=== PATIENT | female | born 1980 | race Caucasian/White ===

== ENCOUNTER 2023-01-05 09:07 | Outpatient (REF) | payer OTHER, SELFPAY ==
--- NOTE | ~2023-01-05 | MM_ITS ---
EXAMINATION: MM SCREENING DIGITAL BREAST TOMOSYNTHESIS, BILATERAL CLINICAL INFORMATION: Screening. Asymptomatic. No family history of breast CA. COMPARISON: Mammography: 06/04/2018, baseline exam. TECHNIQUE: Digital breast tomosynthesis is performed in both the craniocaudal and mediolateral oblique views along with computer-aided detection (CAD). Synthesized 2D images are generated from the tomosynthesis. In addition, bilateral full-field X CCL 3-D images were obtained as well as full-field 3-D bilateral nipple in profile and MLO views. FINDINGS: There are scattered areas of fibroglandular density (ACR BI-RADS breast composition Category b). There are bilateral nipple rings in place (barbells). There are dystrophic appearing calcifications with oil cysts in both breasts, scattered and benign. There are no skin changes. Prominent veins are again noted in both breasts, nonspecific. There are no axillary abnormalities. There are no suspicious abnormalities in the left breast. In the posterior slightly inferior and medial right breast, there is a focal asymmetry which is partially circumscribed, isodense, most likely represents cyst development although this is indeterminate. Recommend spot compression views in the CC and MLO projections, full field 90 degree 3-D projection right breast, and ultrasound to follow if warranted. MM/MM tomosynthesis screening BI IMPRESSION: New focal asymmetric density in the right breast posterior one third, lower slightly inner quadrant, for which diagnostic views are recommended as above. No suspicious findings in the left breast. Stable benign calcifications. ASSESSMENT: BI-RADS BI-RADS 0 - Incomplete: Needs additional Imaging. RECOMMENDATION: 1. Additional views of the right breast. 2. Targeted ultrasound if warranted after review of the additional views. 3. Radiology department staff will contact the patient for additional imaging. Additional Imaging required This examination should not preclude the clinical evaluation of a suspicious palpable abnormality. This patient's information was entered into a reminder system with a target due date for their next mammogram.
== END 2023-01-05 09:08 | disposition home or self-care (01) ==
LOC: HO.MAMMO 09:07
PROVIDERS: PCP Nurse Practitioner Family; Visit Provider Nurse Practitioner Family
DX: Z12.31 Encounter for screening mammogram for malignant neoplasm of breast (principal)
CPT/HCPCS: 77063; 77067

== ENCOUNTER → 2023-01-05 09:15 | Outpatient (BNV) | payer OTHER, SELFPAY | PROVIDERS: PCP Nurse Practitioner Family; Visit Provider Radiology Diagnostic Radiology | DX: Z12.31 Encounter for screening mammogram for malignant neoplasm of breast (principal) | CPT/HCPCS: 77063; 77067 ==

== ENCOUNTER 2023-02-13 12:53 | Outpatient (REF) | payer OTHER, SELFPAY ==
--- NOTE | ~2023-02-13 | US_ITS ---
EXAMINATION: MM DIAGNOSTIC DIGITAL BREAST TOMOSYNTHESIS, RIGHT US BREAST LIMITED, RIGHT MAMMOGRAPHY: CLINICAL INFORMATION: The patient presents for further evaluation of a focal asymmetry of the lower inner quadrant of the right breast As noted on screening mammography from 01/05/2023. COMPARISON: Mammography: This study is compared with prior imaging dating back to 2019. TECHNIQUE: Digital breast tomosynthesis is performed in both the craniocaudal and mediolateral oblique views along with computer-aided detection (CAD). Synthesized 2D images are generated from the tomosynthesis. CC and MLO spot compression of the right breast and full lateral view of the right breast. FINDINGS: There are scattered areas of fibroglandular density (ACR BI-RADS breast composition Category b). Additional mammographic imaging of the focal asymmetry of the lower inner quadrant of the right breast reveals the finding to be pliable, have areas of central lucency and lack suspicious mammographic features. The finding has the appearance of normal lymphoid tissue. ULTRASOUND: CLINICAL INFORMATION: No mammographic asymmetry lower inner quadrant right breast. TECHNIQUE: Targeted sonographic evaluation was performed using a high frequency linear transducer. Selected archived documentation. FINDINGS: RIGHT BREAST: Targeted sonography of the lower inner quadrant of the right breast and aspect of the right breast reveals no discrete abnormality. US/US breast RT limited mamm only IMPRESSION: Focal asymmetry of the lower inner quadrant of the right breast likely represents lymphoid tissue however, there is no sonographic correlate. This is not unusual and predominantly fatty replaced normal lymphoid tissue. Nonetheless, short interval six-month follow-up mammography is advised to ensure lack of significant change. IMPRESSION: Short interval six-month follow-up mammography is recommended for probably benign focal asymmetry of the lower inner quadrant of the right breast. This finding likely represents normal lymphoid tissue however since there is no distinct sonographic correlate, a short interval follow-up is advised. OVERALL ASSESSMENT: Mammography: BI-RADS 3 - Probably benign finding(s) - 6 month follow-up suggested RECOMMENDATION: 6 month follow-up mammogram Results were provided to the patient at time of visit by the technologist. This patient's information was entered into a reminder system with a target due date for their next mammogram.
== END 2023-02-13 12:54 | disposition home or self-care (01) ==
LOC: HO.MAMMO 12:53
PROVIDERS: PCP Nurse Practitioner Family; Visit Provider Nurse Practitioner Family
DX: N64.89 Other specified disorders of breast (principal)
CPT/HCPCS: 76642; 77061; 77065

== ENCOUNTER → 2023-02-13 13:00 | Outpatient (BNV) | payer OTHER, SELFPAY | PROVIDERS: PCP Nurse Practitioner Family; Visit Provider Radiology Diagnostic Radiology | DX: N60.01 Solitary cyst of right breast (principal) | CPT/HCPCS: 76642; 77061; 77065 ==

== ENCOUNTER 2024-01-11 09:04 | Outpatient (REF) | payer MEDICAID, SELFPAY ==
--- NOTE | ~2024-01-11 | MM_ITS ---
EXAMINATION: MM SCREENING DIGITAL BREAST TOMOSYNTHESIS, BILATERAL CLINICAL INFORMATION: Screening. Asymptomatic. COMPARISON: Mammography: Comparison is made with available priors TECHNIQUE: Digital breast mammography with tomosynthesis is performed in both the craniocaudal and mediolateral oblique views along with computer-aided detection (CAD). FINDINGS: There are scattered areas of fibroglandular density (ACR BI-RADS breast composition Category b). Focal asymmetry lower inner right breast posterior depth stable from mammogram 2022 prior ultrasound was normal. This area was deemed to be probably benign December 2022 and 6 month follow-up was recommended however patient came back for normal screening exam. There are no significant other masses, abnormal calcifications, or other abnormalities. MM/MM tomosynthesis screening BI IMPRESSION: Focal asymmetry lower inner breast posterior depth not significantly changed from prior mammograms dating back for 1 year. Recommend one-year follow-up diagnostic mammogram to demonstrate 2 years of stability. ASSESSMENT: BI-RADS BI-RADS 3 - Probably benign finding(s) - 12 month follow-up suggested RECOMMENDATION: Recommend diagnostic mammogram in one year to demonstrate 2 years of stability when the patient is due for bilateral mammography. 12 month diagnostic follow up This examination should not preclude the clinical evaluation of a suspicious palpable abnormality. This patient's information was entered into a reminder system with a target due date for their next mammogram. Electronically signed by: Abena Mendoza DO 01/23/2024 07:10 PM EDT
== END 2024-01-11 09:05 | disposition home or self-care (01) ==
LOC: HO.MAMMO 09:04
PROVIDERS: PCP Family Medicine; Visit Provider Family Medicine
DX: Z12.31 Encounter for screening mammogram for malignant neoplasm of breast (principal)
CPT/HCPCS: 77063; 77067

== ENCOUNTER → 2024-01-11 09:15 | Outpatient (BNV) | payer MEDICAID, SELFPAY | PROVIDERS: PCP Family Medicine; Visit Provider Internal Medicine | DX: Z12.31 Encounter for screening mammogram for malignant neoplasm of breast (principal) | CPT/HCPCS: 77063; 77067 ==

== ENCOUNTER 2025-01-16 09:18 | Outpatient (REF) | payer MEDICAID, SELFPAY ==
--- OUTSIDE RECORDS SUMMARY | 2023-11-16 05:20 | XMS_ITS ---
Author Organization [facility] Address [address] [place] [phone] Care Team Providers Care Livestock Farmers Name Role Phone Syed PATTON, Roger Primary Care Provider Derek Dexter [phone] REASON FOR VISIT Patient presents today for a COLON SCREENING, DIFFICULTY SWALLOWING Encounters Encounter Location Date Provider Diagnosis [facility] [address] [place] [phone] 11/16/2023 Derek Rodriguez Plan Of Treatment No Information Progress Notes * SILVERIO WAREDOB:1980 (44 yo F)Acc No.[id number]:11/16/2023 Progress Notes Patient: SILVERIO LEMA Provider: Mindy Rodriguez MD :1980 A ge:43 Y S ex:Female Date:11/16/2023 Address:[address] [place], [place] [id number] Pcp:Roger Lynch MD Subjective: * Chief Complaints: * 1 . Patient presents today for a COLON SCREENING, DIFFICULTY SWALLOWING. * Medical History: Objective: * Vitals: Assessment: Plan: * Treatment: * * The named appointment provid er may or may not be the originator of this progress note, and it is not deemed complete until electronically signed by the appointment provider. Sign off status: Pending * Provider: Mindy Rodriguez MD Date: 11/16/2023 Generated for Lawrence hernandez/Wilbur/Dougieitting on: 01/16/2025 10:18 AM EDT
--- OUTSIDE RECORDS SUMMARY | 2025-01-16 10:18 | XMS_ITS | Encounter Summary ---
Author Organization [facility] Address [address] [place] [phone] Phone Care Team Providers Care Sample Display Preparer Name Role Phone Hazel Rosenthal MD Primary Care Provider [phone] Reason for Visit * Reason Onset Date Comments Request For Order(s) 01/16/2025 Encounter Details Date Type Department Care Team (Late st Contact Info) Description 01/16/[address] [id number] Hazel Rosenthal MD [address] [facility], [address] [place] [address] [email or web address] Request For Order(s) Social History Tobacco Use Types Packs/Day Years Used Date Smoking Tobacco: Never Smokeless Tobacco: Never Alcohol Use Standard Drinks/Week Comments Not Currently 0 (1 standard drink = 0.6 oz pur e alcohol) Child or Family Care Answer Date Record ed Do you have problems with on e of the following making it difficult for you to work, study, or receive health care? No 06/16/2024 Education Answer Date Recorded Are you interested in help w ith more adult education (for example, completing high school, GED, job training, learning the [place] language, technical skills, or developing parenting skills)? No 06/16/2024 Are you concerned about learning? Not on file 06/16/2024 No 06/16/2024 Yes 06/16/2024 Food Answer Date Recorded Within the past 6 months we worried whether our food would run out before we got money to buy more. Never True 06/16/2024 Within the past 6 months the food we bought just didn't last and we didn't have enough money to get more. Never True Residential Stability Answer Date Recor ded What is your housing situation today? I have gil torres 06/16/2024 How many times have you move d in the past 12 months? Zero (I did not move) 06/16/2024 Paying for Meds Answer Date Recorded Do you have trouble paying for medicines? No 06/16/2024 Paying Utility Bills Answer Date Record ed Do you have trouble paying your heating or elect ricity bill? No 06/16/2024 Transportation Answer Date Recorded Has the lack of transportati on kept you from medical appointments or from getting medications? No 06/16/2024 Unemployment Answer Date Recorded Are you currently unemployed or working on a part-time or temporary basis, and looking for work? No 06/09/2023 Digital Access Answer Date Recorded No 06/16/2024 Yes 06/16/2024 Do you have reliable internet access at home? Ye s 06/16/2024 Do you have a device (e.g., phone, tablet, computer) with a working camera? Yes 06/16/2024 SNAP & WIC Answer Date Recorded Do you receive benefits from SNAP (the Supplemental Nutrition Assistance Program) or the Food Stamp Program? No 06/16/2024 SNAP is a free program that can help you and your family get access to healthy foods, nutrition classes, utility discounts, and more. Would you be interested in learning more? No 06/16/2024 Can we help you enroll in SNAP? Not on file 06/16/2024 Benefits received from WIC? Not on file 05/26 WIC is a free program, interested in learning mo re? Not on file 06/16/2024 Can we help you enroll in WIC? Not on file 0 06/16/2024 Intimate Partner Violence Answer Date R ecorded Are you denied basic needs s uch as food, clothing, or medical care? No 06/16/2024 In the past 12 months have y ou been in a relationship with a person who hurts, threatens, or tries to control you? No 06/16/2024 Are you denied basic needs s uch as food, clothing, or medical care? No 06/16/2024 In the past 12 months have y ou been in a relationship with a person who hurts, threatens, or tries to control you? 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 She is requesting an order for a diagnostic bilateral mammogram for a one year follow up (to demonstrate 2 years of stability). The pt is scheduled next week. Please fax to [phone]. Central Support Manager Ethics (Please do not reply to this user; this inbox is not monitored.) Thank you. documented in this encounter Plan of Treatment Upcoming Encounters Date Type Department Care Team (Late st Contact Info) Description 06/18/2025 1:00 PM EST Office Visit [facility] [address] [place] [address] [place] [address] Hazel Rosenthal MD [address] [place] [address], [address] [place] [address] documented as of this encounter Visit Diagnoses Not on filedocumented in this encounter Additional Health Concerns Assessment Noted Time PHQ-2 Depression Total Score: 0 06/16/19 4:08 PM EST documented as of this encounter Care Teams Sample Display Preparer Relationship Specialty Start Date End Date Hazel Rosenthal MD [address] [place] [address], [address] [place] [address] [email or web address] PCP - General Family Medicine 11/15/23 documented as of this encounter Additional Source Comments The information contained in this document represents components of the legal health record. It is not the complete legal health record.[facility]
--- OUTSIDE RECORDS SUMMARY | 2025-01-16 10:18 | XMS_ITS | Encounter Summary ---
Author Organization [facility] Address [address] [place] [phone] Phone Care Team Providers Care Mold Yarn Supervisor Name Role Phone Hazel Rosenthal MD Primary Care Provider [phone]- [phone] Encounter Details Date Type Department Care Team (Late st Contact Info) Description 03/08/2024 Procedure [facility] Scan - [address] [id number] Social History Tobacco Use Types Packs/Day Years Used Date Smoking Tobacco: Never Smokeless Tobacco: Never Alcohol Use Standard Drinks/Week Comments Not Currently 0 (1 standard drink = 0.6 oz pur e alcohol) Child or Family Care Answer Date Record ed Do you have problems with on e of the following making it difficult for you to work, study, or receive health care? No 06/09/2023 Education Answer Date Recorded Are you interested in help w ith more adult education (for example, completing high school, GED, job training, learning the [place] language, technical skills, or developing parenting skills)? No 06/09/2023 Are you concerned about learning? Not on file 06/09/2023 No 06/09/2023 Yes 06/09/2023 Food Answer Date Recorded Within the past 6 months we worried whether our food would run out before we got money to buy more. Never True 06/09/2023 Within the past 6 months the food we bought just didn't last and we didn't have enough money to get more. Never True Residential Stability Answer Date Recor ded What is your housing situation today? I have gil sing 06/09/2023 How many times have you move d in the past 12 months? Zero (I did not move) 06/09/2023 Paying for Meds Answer Date Recorded Do you have trouble paying for medicines? No 06/09/2023 Paying Utility Bills Answer Date Record ed Do you have trouble paying your heating or elect ricity bill? No 06/09/2023 Transportation Answer Date Recorded Has the lack of transportati on kept you from medical appointments or from getting medications? No 06/09/2023 Unemployment Answer Date Recorded Are you currently unemployed or working on a part-time or temporary basis, and looking for work? No 06/09/2023 Digital Access Answer Date Recorded No 06/09/2023 Yes 06/09/2023 Do you have reliable internet access at home? Ye s 06/09/2023 Do you have a device (e.g., phone, tablet, computer) with a working camera? Yes 06/09/2023 SNAP & WIC Answer Date Recorded Do you receive benefits from SNAP (the Supplemental Nutrition Assistance Program) or the Food Stamp Program? No 06/09/2023 SNAP is a free program that can help you and your family get access to healthy foods, nutrition classes, utility discounts, and more. Would you be interested in learning more? No 06/09/2023 Can we help you enroll in SNAP? Not on file 06/09/2023 Benefits received from WIC? Not on file 05/25 WIC is a free program, interested in learning mo re? Not on file 06/09/2023 Can we help you enroll in WIC? Not on file 0 06/09/2023 Intimate Partner Violence Answer Date R ecorded Are you denied basic needs s uch as food, clothing, or medical care? No 03/08/2024 In the past 12 months have y ou been in a relationship with a person who hurts, threatens, or tries to control you? No 03/08/2024 Are you denied basic needs s uch as food, clothing, or medical care? No 03/08/2024 In the past 12 months have y ou been in a relationship with a person who hurts, threatens, or tries to control you? No 03/08/2024 Comments No Sex and Gender Information Value [...] on file documented as of this encounter Functional Status * Calculated C-SSRS Risk Score (Lifetime/Recent) Answer Date of Assessment Author No Risk Indicated 03/08/2024 11:07 AM EST Rupa Page RN * [place] Suicide Severity Rating Scale (Screener/Recent Self-Report) Question Answer Date of Assessment Author 1. Wish to be (Past 1 Month) No 03/08/2024 11:07 AM EST Rupa Page RN 2. Non-Specific Active Suicidal Thoughts (Past 1 Month) No 03/08/2024 11:07 AM EST Rupa Page RN 6. Suicidal Behavior (Lifetime) No 03/08/2024 11:07 AM EST Rupa Page RN documented as of this encounter Plan of Treatment Upcoming Encounters Date Type Department Care Team (Late st Contact Info) Description 06/18/2025 1:00 PM EST Office Visit [facility] [address] [address] Hazel Rosenthal MD [address] [place] [address], [address] [address] [email or web address] documented as of this encounter Visit Diagnoses Not on filedocumented in this encounter Additional Health Concerns Assessment Noted Time PHQ-2 Depression Total Score: 0 11/15/19 24 12:30 AM EDT documented as of this encounter Care Teams Mold Yarn Supervisor Relationship Specialty Start Date End Date Hazel Rosenthal MD [address] [place] [address], [address] [address] PCP - General Family Medicine 11/15/23 documented as of this encounter Additional Source Comments The information contained in this document represents components of the legal health record. It is not the complete legal health record.[facility]
--- OUTSIDE RECORDS SUMMARY | 2025-01-16 10:18 | XMS_ITS | Clinical Summary ---
Author Organization [facility] Address [address] [address] Phone Care Team Providers Care Chief Meteorologist Name Role Phone Hazel Rosenthal MD Primary Care Provider [phone] Allergies Active Allergy Reactions Criticality Noted Date Comments Macadamia Nut Hives 12/20/2022 Medications verapamiL (VERELAN) 240 MG 24 hr capsule TAKE 1 CAPSULE BY MOUTH EVERY DAY AT NIGHT AT BEDTIME (240 MG TOTAL) 90 capsule 3 5 Active hydroCHLOROthiaz kg 25 MG tabletIndication s:Essential hypertension TAKE 1 TABLET (25 MG TOTAL) BY MOUTH DAILY. 90 tablet 3 5 Active albuterol 2.5 mg /3 mL (0.083 %) nebulizer solution Take 3 mL (2.5 mg total) by nebulization every 6 (six) hours as needed for wheezing or shortness of breath/dyspnea. 360 mL 2 5 Active PROVENTIL HFA 90 mcg/actuation inhaler Inhale 2 puffs into the lungs every 6 (six) hours as needed for wheezing. 18 g 2 5 Active fluticasone propion-salmeter oL (ADVAIR HFA) 115-21 mcg/actuation inhalerIndicatio ns:Mild persistent asthma without complication Inhale 2 puffs into the lungs 2 (two) times a day. 12 g 5 5 Active semaglutide (OZEMPIC) 1 mg/dose (4 mg/3 mL) subcutaneous injection pen INJECT 1 MG UNDER THE SKIN EVERY 7 DAYS 1 each 3 5 Active Active Problems Problem Noted Date Diagnosed Date Seasonal allergies 08/08/2024 Assessment & Plan (08/20/2024 4:40 PM EDT): Commander Internal Affairs referral Cont zyrtec, steroid nasal spray prn Assessment & Plan (08/08/2024 8:57 AM EDT): She may try different antihistamine at recommended dose as claritin was not effective for her Suggested cetirizine Lipoma of shoulder 12/20/2022 Vitamin D deficiency 08/30/2019 Vitamin B12 deficiency 08/30/2019 Iron deficiency 08/30/2019 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 She has risk for stroke, she did however reveal that there was involvement of the left eye as well hinting towards Soto's palsy left-sided. Another good reason to assess the patient is to see how severe the Soto's palsy is to make proper recommendations. He we see the Soto's palsy is pronounced involving the eye with concern of drying up of the cornea. Plan: At this point I would not do lab testing, for right now the only concerning lab would be Lyme titer but there is very very low chance that patient has tick bite, does not have any pets and does not go out in the [place] or in tall grass. She had been staying inside for most of the month. No tick bite seen, no rash seen. Could entertain however if symptoms persist and other symptoms of Lyme's disease crop up. Most likely this is viral for example herpes simplex virus or herpes zoster virus. Therefore treatment with valacyclovir 1000 mg p.o. 3 times daily for 7 days and prednisone 40 mg twice daily for 7 days. To protect the eye against dryness and abrasion, artificial tears 4 times daily and patient will wear protective patch at night. She will call in 1 week to tell us how she is doing and then we can give her further instruction regarding her eye symptoms. Impaired fasting glucose 04/12/2018 Mild persistent asthma without complication 03/25 Assessment & Plan (08/20/2024 4:40 PM EDT): Cont Advair Commander Internal Affairs consult recommended Mixed hyperlipidemia 04/12/2018 Morbid obesity with BMI of 60.0-69.9, adult 03/25 Assessment & Plan (10/03/2024 8:21 AM EDT): Reviewed importance of adequate and balanced nutrition despite low appetite. Reviewed specifics around meal planning and intake to maintain adequate nutrition. She feels confident she can be more mindful re ensuring she has 3 meals a day with protein sources/fruits/vegetable and high fiber foods. Reviewed importance of good hydration - 6-8 glasses of water a day F/u 6 weeks Monitor labs prior to that Reviewed we may want to reduce her ozempic dose if appetite is overly suppressed and malnutrition becomes a concern. Reviewed risks of malnutrition Orders: Comprehensive metabolic panel; Future CBC; Future Assessment & Plan (08/20/2024 4:40 PM EDT): Increase Ozempic dose to 1 mg. Encouraged her to have 3 meals a day with good protein sources, fruits and vegetables. Healthy snacks in between Cont ++ fluids Assessment & Plan (07/23/2024 4:31 PM EDT): Labs ordered She plans to cont current dose of ozempic for 6 weeks and we will f/u then - we can decide re dose change then if desired. Orders: Comprehensive metabolic panel; Future CBC; Future Hemoglobin A1c; Future Assessment & Plan (06/18/2024 3:57 PM EST): Increase ozempic dose to 0.5 weekly and f/u in 4-5 weeks Reviewed that dose will be further increased if tolerated and that lowest dose rarely effective. Encouraged diet and exercise habits We will set up next labs after next appt Assessment & Plan (12/06/2022 10:49 AM EDT): This is a 42-year-old woman who is interested in a laparoscopic sleeve gastrectomy. She left the program and is now back to start the program again. I have reiterated the eating plan which will include 2 meal replacements per day and 2 meals of 4 ounces of protein and 6 ounce of vegetables or small salad with half cup of carbohydrate once per day. She may have a snack at 8 PM which will be a piece of fruit such as an apple or pear to kiwi's, a cup of berries. The patient may have 1 treat meal per week. She should add formalize exercise at least 30 minutes of cardiovascular exercise 3 times weekly to start with an increase to at least 40 minutes 4 times weekly. The patient will increase her water intake to at least 64 ounces on a daily basis. She will follow-up with a dietitian in 2 and 4 weeks and follow-up with me again in 6 weeks timeframe. I have ordered all of the referrals to behavioral health and the patient's blood work. She will need a PCP physical examination and clearance prior to surgery. Patient has an additional 26.2 more pounds to lose before being a surgical weight loss candidate. Her goal weight at the time of submission to insurance company will be 214.2 pounds. Patient will continue current medications as reviewed. She is not stable and is considered morbidly obese. Assessment & Plan (03/15/2022 12:04 PM EST): This is a 42 YO patient who is interested in weight loss surgery, specifically the laparoscopic sleeve gastrectomy for weight loss. We have discussed gastric bypass and sleeve gastrectomy surgery in detail including risks, benefits, and alternatives. We have also discussed requirements preop and post op. They understands that they are required to lose about 10 percent of their current weight which is 35 lbs. The goal weight at the time of submission to the insurance company will be 316.2 pounds. In an effort to help the patient to lose weight I have prescribed an eating plan which will consist of a protein shake or a protein bar or Ukrainian yogurt or cottage cheese to be consumed at 9 AM and 3 PM daily. The patient will consume 4 ounces of protein with 6 ounces of vegetable or small salad with a noncreamy salad dressing of not more than 2 tablespoons at 12 PM and 6 PM daily. At the 6 PM meal the patient may have 1/2 cup of carbohydrate. We have ordered required labs and testing. The patient will attend 5 nutrition classes, 2 appointments, and dietitian consultation. The patient will need to obtain a medical clearance letter from the primary care doctor prior to submission to the insurance company. The patient will see the dietitian in 2 weeks and I will follow up with them again in 4 weeks to ensure compliance with the meal plan. The patient will continue current medications as reviewed. They are not stable and are considered morbidly obese. I spent 54 minutes with this patient which also included documentation. Gastroesophageal reflux disease without esophagi tis 04/12/2018 Essential hypertension 05/05/2017 Assessment & Plan (06/18/2024 3:57 PM EST): Well controlled Encounters Date Type Department Care Team Description 01/16/[address] [place] [address] Hazel Rosenthal MD Request For Order(s) 11/09/[address] [place] [address] Hazel Rosenthal MD Medication Refill from Last 3 Months Immunizations Immunization Administration Dates Next Due COVID-19 (Pre-02/13) Pfizer Vaccine, mRNA, PF PPD Test 12/29/2009 Pneumococcal conjugate PCV13 09/05/2019 Pneumococcal polysaccharide PPSV23 02/23/2022 Td (adult) 5 Lf Tetanus Toxoid, PF, Adsorbed Family History Medical History Relation Comments No Known Problems Brother Thyroid disease Daughter 2 Alcohol abuse Father Arthritis Father Asthma Father COPD Father Diabetes mellitus Father Hypertension Father Pernicious anemia Father Hypertension Mother Peripheral vascular disease Mother Thyroid disease Mother Asthma Sister 1 Hypertension Sister 1 Thyroid disease Sister 1 Asthma Sister 2 Thyroid disease Sister 2 Relation Status Comments Brother Alive Daughter 1 Alive Daughter 2 Alive Father Mother Alive Sister 1 Alive Sister 2 Alive Son Alive Social History Tobacco Use Types Packs/Day Years [...] high school, GED, job training, learning the French language, technical skills, or developing parenting skills)? [...] housing situation today? I have gil sing 06/16/2024 How many times have you move [...] file Not on file Not on file Last Filed Vital Signs Vital Sign Reading Time Taken Comments Blood Pressure 126/84 10/02/2024 10:20 AM EDT Pulse 80 08/20/2024 10:21 AM EDT Temperature 36.2 C (97.2 F) 10/02/2024 10:20 AM EDT Respiratory Rate 18 03/08/2024 5:47 PM EST Oxygen Saturation 94% 08/07/2024 8:56 AM EDT Inhaled Oxygen Concentration - - Weight 141.3 kg (311 lb 6.4 oz) 025 10:20 AM EDT Height 159 cm (5' 2.6 ) 10/02/2024 10:2 0 AM EDT Body Mass Index 55.87 10/02/2024 10:20 AM EDT Plan of Treatment Upcoming Encounters Date Type Department Care Team (Late st Contact Info) Description 06/18/2025 1:00 PM EST Office Visit [facility] Medicine [address] [place] [address] [place] [address] Hazel Rosenthal MD [address] [facility], [address] [place] [address] [email or web address] Health Maintenance Due Date Last Done Comments COLOGUARD 2023 COLONOSCOPY 2023 COLORECTAL CANCER SCREENING 2023 FIT TEST 2023 FOBT 2023 SIGMOIDOSCOPY 2023 VIRTUAL COLONOSCOPY 2023 INFLUENZA VACCINE (#1) 2024 COVID-19 VACCINE (3 - season) 2024 08/21/2020, 07/12/2020 MAMMOGRAM 02/13/2025 02/13/2023, 06/2022, 02/23/2022, Additional history exists BLOOD PRESSURE 04/03/2025 10/02/2024 DEPRESSION SCREENING 06/16/2025 06/16/2024 POTASSIUM LEVEL 08/01/2025 08/01/2024, 02/22, 12/27/2023, Additional history exists PAP SMEAR 02/23/2027 02/23/2022, 12/18/2014 SCREENING FOR DIABETES 08/02/2027 08/01/2024, 2024 PNEUMOCOCCAL VACCINES (0-49 years) (3 of 3 - PCV20 or PCV21) 2028 02/23/2022, 09/05/2019 LIPID PANEL 12/26/2028 12/27/2023, 11/23, 02/23/2022, Additional history exists Adult Td,Tdap Booster 11/14/2033 11/15/2023 HEPATITIS C SCREENING Completed 12/27/2023, 021 HIV ONE-TIME SCREENING (18-65 YEARS) Completed 12/27/2023 SMOKING STATUS SCREENING (Once After 26 Yrs) Completed 10/02/2024 HEPATITIS A VACCINES Aged Out No long er eligible based on patient's age to complete this topic HIB VACCINES Aged Out No longer eligi ble based on patient's age to complete this topic MENINGOCOCCAL VACCINES (ACWY) Aged Out No longer eligible based on patient's age to complete this topic MENINGOCOCCAL VACCINES (B) Aged Out N o longer eligible based on patient's age to complete this topic Medical Devices Not on file Procedures Procedure Name Priority Date/Time Associated Diagnosis Comments COMPREHENSIVE METABOLIC PANEL Routine 08/01/2024 10:20 AM EDT Morbid obesity with BMI of 60.0-69.9, adult LIPID PANEL Routine 12/27/2023 11:36 AM EDT Mixed hyperlipidemia HEPATITIS C ANTIBODY, QUALITATIVE Routine 12/27/2023 11:36 AM EDT Screening examination for STI HM MAMMOGRAPHY Routine 02/13/2023 PAP TEST Routine 02/23/2022 12:00 AM EDT from Last 3 Months or Most Recently Relevant to Health Maintenance Results * Comprehensive metabolic panel (08/01/2024 10:20 AM EDT) SODIUM 140 133 - 146 mmol/L [facility] POTASSIUM 3.4 3.3 - 5.1 mmol/L [facility] CHLORIDE 102 96 - 108 mmol/L [facility] CO2 27 21 - 35 mmol/L [facility] BUN 14 6 - 19 mg/dL [facility] CREATININE 0.70 0.5 - 1.5 mg/dL [facility] GLUCOSE 99 70 - 99 mg/dL [facility] ALBUMIN 4.2 3.9 - 4.8 g/dL [facility] TOTAL PROTEIN 7.3 6.5 - 8.0 g/dL [facility] CALCIUM 9.3 8.4 - 10.3 mg/dL [facility] ALKALINE PHOSPHATASE 80 39 - 117 U/L [facility] TOTAL BILIRUBIN 0.3 0.0 - 1.2 mg/dL [facility] AST 19 0 - 37 U/L [facility] ALT 18 0 - 40 U/L [facility] GLOBULIN 3.1 1 - 4.8 g/dL [facility] EGFR 108 >59 mL/min/1.7 3m2 [facility] Comment:Estimated glomerular filtration rate calculated using the CKD-EPI refit equation. ANION GAP 14 10 - 20 mmol/L [facility] Blood 08/01/2024 10:2 0 AM EDT 08/01/2024 10:22 AM EDT us Hazel Rosenthal MD LAB BLOOD ORDERABLES Final Result [address] [address] * Hepatitis C antibody, qualitative (12/27/2023 11:36 AM EDT) HCV NON-REACTIV E NON-REACTI VE [facility] Blood 12/27/2023 11:3 6 AM EDT 12/27/2023 11:55 AM EDT us Hazel Rosenthal MD LAB BLOOD ORDERABLES Final Result Performing Organization Address [facility]/ZIP Co de Phone Number [address] [address] * (ABNORMAL) Lipid panel (12/27/2023 11:36 AM EDT) HDL 46 mg/dL [facility] Comment: Interpretation <40 mg/dL: Low HDL cholesterol (major risk factor for CHD) Greater than or equal to 60 mg/dL: High HDL cholesterol ( negative risk factor for CHD) HDL - cholesterol is affected by a number of factors, e.g. smoking, excerise, hormones, sex and age. CHOLESTEROL 207 0 - 240 mg/dL [facility] TRIGLYCERIDES 172(H) 30 - 160 mg/dL [facility] LDL 127 50 - 129 mg/dL [facility] Comment: LDL levels in terms of risk for coronary heart disease: <100 mg/dL: Optimal 100-129 mg/dL: Near or above optimal 130-159 mg/dL: Borderline high 160-189 mg/dL: High >190 mg/dL: Very High CARDIAC RISK RATIO 4.5(H) 3.3 - 4.4 C [facility] Blood 12/27/2023 11:3 6 AM EDT 12/27/2023 11:55 AM EDT us Hazel Rosenthal MD LAB BLOOD ORDERABLES Final Result [address] [address] * MAMMOGRAPHY FOR RESULT ENTRY ONLY (02/13/2023) Alyssa Su NP HEALTH MAINTENANCE Edited Resul t - Final * Pap Smear (02/23/2022 12:00 AM EDT) 02/23/2022 02/24/2022 11: 12 AM EDT Narrative SEE NARRATIVE - 03/03/2022 11:21 AM EST [address] [address] Ranger Aide: Amisha Yanez MD SCIENTIFIC SOFTWARE ENGINEER Cytology Report FINAL DIAGNOSIS A. PAP SMEAR (SUREPATH) CE: SPECIMEN ADEQUACY: Satisfactory for evaluation; transformation zone absent/insufficient. Evaluation limited by thickness of cellular specimen. INTERPRETATION: NEGATIVE FOR INTRAEPITHELIAL LESION OR MALIGNANCY. Fungal organisms morphologically consistent with Jud species. Electronically Signed Out By: MABEL Vance(ASCP) The Pap test is a screening test primarily for squamous cancers and precursors and has associated false-negative and false-positive results. New technologies such as liquid-based preparations may decrease but will not eliminate all false-negative results. Regular sampling and follow-up of unexplained clinical signs and symptoms are recommended to minimize false negative results. PROCEDURES/ADDENDA HPV Testing (Requested) Ordered Date: 02/24/2022 A. PAP SMEAR (SUREPATH) CE: Human Papilloma Virus Test Negative for high-risk human papillomavirus types 16, 18, 45 and the Other high risk probe set (Includes 31, 33, 35, 39, 51, 52, 56, 58, 59, 66, 68) by [employer] Onclarity HR-HPV analysis. Clinical correlation is advised. This HPV test was performed at [facility], [address] [place] [address]. This test has been FDA approved for SurePath cervical cytology specimens. The accuracy and precision of this test for all other specimen sources has been verified in the Cytopathology Laboratory of the [facility] and has not been cleared or approved by the U.S. Food and Drug Administration. Clinical correlation is advised. CLINICAL HISTORY Date of Last Menstrual Period: 02-08-22 Other Clinical Conditions: Screening Pap SPECIMEN SOURCE A: PAP SMEAR (SUREPATH) CE Patient Name: SILVERIO GRAHAM : 1980 (Age: 41) Sex: F Institution: [facility] Location: [facility] Date of Collection: 02/23/2022 Date of Reported: 03/03/2022 11:21 Results to: Alyssa Su MSN, BSN us Alyssa Su CAR ICER CYTOLOGY ORDERABLES Final Resul t SEE NARRATIVE from Last 3 Months or Most Recently Relevant to Health Maintenance Insurance ACO [facility] ACO ACO ACO ACO [facility] ACO Care Teams Chief Meteorologist Relationship Specialty Start Date End Date Hazel Rosenthal MD [address] [place] [address], [address] [place] [address] [email or web address] PCP - General Family Medicine 11/15/23 Additional Source Comments The information contained in this document represents components of the legal health record. It is not the complete legal health record.[facility]
--- OUTSIDE RECORDS SUMMARY | 2025-01-16 10:18 | XMS_ITS | Patient Health Record ---
Author Organization [facility] Address [address] [place] [address] Care Team Providers Care Appraiser [employer] Name Role Phone Roger Lynch MD Primary Care Provider Derek Dexter Unavailable [phone] Reason For Referral No Information Plan Of Treatment No Information Insurance Providers Payer Name Payer Address Payer Phone Subscriber Number Group Number Insured Name Patient Relationship to Insured Coverage Start Date Coverage End Date [employer] [address] [place] [id number] SILVERIO WARE Self - patient is the insured
--- OUTSIDE RECORDS SUMMARY | 2025-01-16 10:18 | XMS_ITS | Encounter Summary ---
Author Organization [facility] Address [address] [place] [phone] Phone Care Team Providers Care Tread Tuber Machine Operator Name Role Phone Alyssa Su CONTROL ROOM TENDER Primary Care Provider [phone] Unknown, Unknown Primary Care Provider Hazel Mccollum MD Primary Care Provider [phone] Encounter Details Date Type Department Care Team (Late st Contact Info) Description 05/12/2022 Procedure Pass [facility] Endoscopy Admitting Dept Virtual Department [address] [place] [address] Social History Tobacco Use Types Packs/Day Years Used Date Smoking Tobacco: Never Smokeless Tobacco: Never Alcohol Use Standard Drinks/Week Comments No 0 (1 standard drink = 0.6 oz pur e alcohol) Child or Family Care Answer Date Record ed Do you have problems with on e of the following making it difficult for you to work, study, or receive health care? No 02/23/2022 Education Answer Date Recorded Are you interested in help w ith more adult education (for example, completing high school, GED, job training, learning the Georgian language, technical skills, or developing parenting skills)? No 02/23/2022 Food Answer Date Recorded Within the past 6 months we worried whether our food would run out before we got money to buy more. Never True 02/23/2022 Within the past 6 months the food we bought just didn't last and we didn't have enough money to get more. Never True Residential Stability Answer Date Recor ded What is your housing situation today? I have gil sing 02/23/2022 How many times have you move d in the past 12 months? Zero (I did not move) 02/23/2022 Paying for Meds Answer Date Recorded Do you have trouble paying for medicines? No 02/23/2022 Paying Utility Bills Answer Date Record ed Do you have trouble paying your heating or elect ricity bill? No 02/23/2022 Transportation Answer Date Recorded Has the lack of transportati on kept you from medical appointments or from getting medications? No 02/23/2022 Unemployment Answer Date Recorded Are you currently unemployed or working on a part-time or temporary basis, and looking for work? No 02/23/2022 Comments No Sex and Gender Information Value [...] on file documented as of this encounter Plan of Treatment Upcoming Encounters Date Type Department Care Team (Late st Contact Info) Description 06/18/2025 1:00 PM EST Office Visit [facility] Family [address] [address] Hazel Rosenthal MD [address] [place] [address], [address] [place] [address] documented as of this encounter Visit Diagnoses Not on filedocumented in this encounter Additional Health Concerns Assessment Noted Time PHQ-2 Depression Total Score: 0 02/24/20 22 3:06 PM EDT documented as of this encounter Care Teams Tread Tuber Machine Operator Relationship Specialty Start Date End Date Alyssa Su NP PCP - General Family Medicine 06/18/20 07/02/23 Unknown, Unknown, MD PCP - General 07/03/23 11/14/23 Hazel Rosenthal MD [address] [place] [address], [address] [place] [address] PCP - General Family Medicine 11/15/23 documented as of this encounter Additional Source Comments The information contained in this document represents components of the legal health record. It is not the complete legal health record.[facility]
== END 2025-01-16 09:19 | disposition home or self-care (01) ==
LOC: HO.MAMMO 09:18
PROVIDERS: PCP Family Medicine; Visit Provider Family Medicine
DX: Z13.89 Encounter for screening for other disorder (principal)

== ENCOUNTER 2025-03-11 13:06 | Outpatient (REF) | payer MEDICAID, SELFPAY ==
--- NOTE | ~2025-03-11 | MM_ITS ---
EXAMINATION(S): MM DIAGNOSTIC DIGITAL BREAST TOMOSYNTHESIS, BILATERAL CLINICAL INFORMATION: A 12-month diagnostic follow-up was recommended to reevaluate the focal asymmetry in the lower inner quadrant of the right breast. This finding was first described on the screening mammogram of on January 05, 2023. No suspicious sonographic correlate seen, and this was considered presumably an area of normal lymphoid tissue. COMPARISON: Comparison made to multiple prior, most recent January 11, 2024, and most remote January 02, 2019. TECHNIQUE: Digital breast tomosynthesis is performed in both the mediolateral oblique and craniocaudal views along with computer-aided detection (CAD). Synthesized 2D images are generated from the tomosynthesis. FINDINGS: BREAST COMPOSITION: There are scattered areas of fibroglandular density. RIGHT BREAST: Focal asymmetry in the lower inner quadrant is essentially unchanged since December 2022; given two years stability, this can now be considered benign finding. No significant masses, suspicious calcifications or other abnormalities are seen. LEFT BREAST: No significant masses, suspicious calcifications or other abnormalities are seen. MM/MM tomosynthesis diagnostic BI IMPRESSION: RIGHT BREAST: Benign, no mammographic evidence of malignancy. Patient may return to routine screening mammogram in 12 months. LEFT BREAST: Negative, no mammographic evidence of malignancy. Normal interval follow-up is recommended in 12 months. ASSESSMENT: BI-RADS: Category 2: Benign RECOMMENDATION: 1 year F/U Results were provided to the patient at time of visit by the technologist. This patient's information was entered into a reminder system with a target due date for their next mammogram. Electronically signed by: Rashad Fernando MD 03/11/2025 04:05 PM [facility]
--- OUTSIDE RECORDS SUMMARY | 2025-03-12 04:48 | XMS_ITS | Clinical Summary ---
Author Organization [facility] Address [address] [address] Phone Care Team Providers Care Long Line Teamster Name Role Phone Hazel Rosenthal MD Primary Care Provider [phone] Hazel Rosenthal MD Unavailable [phone] Allergies Active Allergy Reactions Criticality Noted Date Comments Macaesmeia Nut Hives 12/20/2022 Medications verapamiL (VERELAN) 240 MG 24 hr capsule TAKE 1 CAPSULE BY MOUTH EVERY DAY AT NIGHT AT BEDTIME (240 MG TOTAL) 90 capsule 3 05/30/19 25 Active hydroCHLOROthia zide 25 MG tabletIndicatio ns:Essential hypertension TAKE 1 TABLET (25 MG TOTAL) BY MOUTH DAILY. 90 tablet 3 05/30/19 25 Active albuterol 2.5 mg /3 mL (0.083 %) nebulizer solution Take 3 mL (2.5 mg total) by nebulization every 6 (six) hours as needed for wheezing or shortness of breath/dyspnea. 360 mL 2 06/18/19 25 Active fluticasone propion-salmete roL (ADVAIR HFA) 115-21 mcg/actuation inhalerIndicati ons:Mild persistent asthma without complication Inhale 2 puffs into the lungs 2 (two) times a day. 12 g 5 10/15/19 25 Active VENTOLIN HFA 90 mcg/actuation inhaler INHALE 2 PUFFS INTO THE LUNGS EVERY 6 HOURS NEEDED FOR WHEEZE 18 g 02/20/20 25 Active predniSONE (DELTASONE) 20 MG tablet Take 2 tablets (40 mg total) by mouth daily with breakfast. 10 tablet 03/04/20 Active semaglutide (OZEMPIC) 2 mg/dose (8 mg/3 mL) subcutaneous injection pen Inject 2 mg under the skin every 7 days. 3 mL 3 03/04/20 Active benzonatate (TESSALON) 100 MG capsule Take 1 capsule (100 mg total) by mouth 3 (three) times a day as needed for cough. 20 capsule 03/04/20 25 Active SPIRIVA RESPIMAT 1.25 mcg/actuation Mist Inhale 2 puffs into the lungs 2 (two) times a day. 02/19/20 Active PROVENTIL HFA 90 mcg/actuation inhaler Inhale 2 puffs into the lungs every 6 (six) hours as needed for wheezing. 18 g 2 08/22/19 25 2024 Discontinued semaglutide (OZEMPIC) 1 mg/dose (4 mg/3 mL) subcutaneous injection pen INJECT 1 MG UNDER THE SKIN EVERY 7 DAYS 1 each 3 11/12/19 25 2024 Discontinued Active Problems Problem Noted Date Diagnosed Date Seasonal allergies 08/08/2024 Assessment & Plan (08/20/2024 4:40 PM EDT): Manager Of Pharmacy referral Cont pascualtecurly, steroid nasal spray prn Assessment & Plan [...] and does not go out in the [place] or in tall grass. She had been [...] Plan (08/20/2024 4:40 PM EDT): Cont Advair Manager Of Pharmacy consult recommended Mixed hyperlipidemia 04/12/2018 Morbid obesity 04/12/2018 Assessment & Plan (03/05/2025 6:01 PM EST): Increase GLP 1 dose - ozempic 2 mg every 7 days Cont diet,exercise efforts and monitoring for side effects Reviewed importance of eating a healthy balanced diet rich in vegetables, fruits,protein sources even in context of reduced appetite Reminded again to have pending labs done Assessment & Plan (10/03/2024 8:21 AM EDT): [...] protein shake or a protein bar or Turkish yogurt or cottage cheese to be consumed [...] Encounters Date Type Department Care Team Description 03/07/2025 Telephone [place] [address] [place] [address] Kimmie Agee, RN Results 2025 11:45 AM EST Office Visit [address] [place] [address] Hazel Rosenthal MD Morbid obesity (Primary Dx); Asthma with acute exacerbation, unspecified asthma severity, unspecified whether persistent 02/18/[address] [place] [address] Hazel Rosenthal MD Medication Refill 01/22/2025 Orders Only [address] [place] [address] Hazel Rosenthal MD Abnormal mammogram 01/20/2025 [facility] RISK SCORES SYSTEM GENERATED External System Generated Encounter [address] [place] [address] Unknown, Unknown, 01/16/[address] [place] [address] Hazel Rosenthal MD Request For Order(s) from Last 3 Months Immunizations Immunization Administration [...] high school, GED, job training, learning the Setswana language, technical skills, or developing parenting skills)? [...] Sign Reading Time Taken Comments Blood Pressure 128/74 2025 11:39 AM EST Pulse 87 2025 11:39 AM EST Temperature 36.3 C (97.3 F) 2025 11:39 AM EST Respiratory Rate 18 03/08/2024 5:47 PM EST Oxygen Saturation 98% 2025 11: 39 AM EST Inhaled Oxygen Concentration - - Weight 136.7 kg (301 lb 6.4 oz) 025 11:39 AM EST Height 159 cm (5' 2.6 ) 2025 11:3 9 AM EST Body Mass Index 54.08 2025 11:39 AM EST Plan of Treatment Upcoming Encounters Date Type Department Care Team (Late st Contact Info) Description 06/18/2025 1:00 PM EST [facility] [place] [facility] [address] [place] [address] [place] [address] Hazel Rosenthal MD [address] [facility], [address] [place] [address] [email or web address] Health Maintenance Due Date Last Done Comments COLOGUARD 2023 COLONOSCOPY 2023 COLORECTAL CANCER SCREENING 2023 FIT TEST 2023 FOBT 2023 SIGMOIDOSCOPY 2023 VIRTUAL COLONOSCOPY 2023 INFLUENZA VACCINE (#1) 2024 COVID-19 VACCINE (3 - season) 2024 08/21/2020, 07/12/2020 DEPRESSION SCREENING 06/16/2025 06/16/2024 BLOOD PRESSURE 09/01/2025 2025 MAMMOGRAM 01/10/2026 01/11/2024, 12/23, 01/11/2024, Additional history exists POTASSIUM LEVEL 03/07/2026 03/07/2025, 07/23, 03/08/2024, Additional history exists PAP SMEAR 02/23/2027 02/23/2022, 12/18/2014 PNEUMOCOCCAL VACCINES (0-49 years) (3 of 3 - PCV20 or PCV21) 2028 02/23/2022, 09/05/2019 SCREENING FOR DIABETES 03/07/2028 03/07/2025, 2024 LIPID PANEL 12/26/2028 12/27/2023, 11/23, 12/12/2022, Additional history exists Adult Td,Tdap Booster 11/14/2033 11/15/2023 HEPATITIS C SCREENING Completed 12/27/2023 , 12/27/2023, 08/06/2020 HIV ONE-TIME SCREENING (18-65 YEARS) Completed 12/27/2023 SMOKING STATUS SCREENING (Once After 26 Yrs) Completed 2025 HEPATITIS A VACCINES Aged Out No long er eligible based on patient's age to complete this topic HIB VACCINES Aged Out No longer eligi ble based on patient's age to complete this topic IPV VACCINES Aged Out No longer eligi ble based on patient's age to complete this topic MENINGOCOCCAL VACCINES (ACWY) Aged Out No longer eligible based on patient's age to complete this topic MENINGOCOCCAL VACCINES (B) Aged Out N o longer eligible based on patient's age to complete this topic Medical Devices Not on file Procedures Procedure Name Priority Date/Time Associated Diagnosis Comments 25-OH VITAMIN D Routine 03/07/2025 10:57 AM EST Weight loss FERRITIN Routine 03/07/2025 10:57 AM EST Weight loss VITAMIN B12 Routine 03/07/2025 10:57 AM EST Weight loss CBC Routine 03/07/2025 10:57 AM EST Morbid obesity with BMI of 60.0-69.9, adult COMPREHENSIVE METABOLIC PANEL (CMP) Routine 03/07/2025 10:57 AM EST Morbid obesity with BMI of 60.0-69.9, adult BI MAMMOGRAM DIAGNOSTIC (BILATERAL) Routine 01/11/2024 2:24 PM EDT Abnormal mammogram LIPID PANEL Routine 12/27/2023 11:36 AM EDT Mixed hyperlipidemia HEPATITIS C ANTIBODY, QUALITATIVE Routine 12/27/2023 11:36 AM EDT Screening examination for STI PAP TEST Routine 02/23/2022 12:00 AM EDT from Last 3 Months or Most Recently Relevant to Health Maintenance Results * Comprehensive Metabolic Panel (CMP) (03/07/2025 10:57 AM EST) Sodium 139 136 - 145 mmol/L 03/07/2025 5:38 PM [facility] Potassium 3.8 3.4 - 5.1 mmol/L 03/07/2025 5:38 PM [facility] Chloride 100 98 - 107 mmol/L 03/07/2025 5:38 PM [facility] CO2 26 20 - 31 mmol/L 03/07/2025 5:38 PM [facility] Anion Gap 13 3 - 17 mmol/L 03/07/2025 5:38 PM [facility] BUN 13 6 - 23 mg/dL 03/07/2025 5:38 PM [facility] Creatinine 0.60 0.50 - 1.00 mg/dL 03/07/2025 5:38 PM [facility] eGFR 111 >59 mL/min/1.7 3m2 03/07/2025 5:38 PM [facility] Comment:Estimated glomerular filtration rate calculated using the CKD-EPI refit equation. Glucose 89 70 - 99 mg/dL 03/07/2025 5:38 PM [facility] Calcium 9.2 8.5 - 10.5 mg/dL 03/07/2025 5:38 PM [facility] AST 13 <33 U/L 03/07/2025 5:38 PM [facility] ALT 10 <34 U/L 03/07/2025 5:38 PM [facility] Alkaline Phosphatase 90 40 - 130 U/L 03/07/2025 5:38 PM [facility] Bilirubin, Total 0.4 0.0 - 1.2 mg/dL 03/07/2025 5:38 PM [facility] Total Protein 7.3 6.4 - 8.3 g/dL 03/07/2025 5:38 PM [facility] Albumin 4.4 3.5 - 5.2 g/dL 03/07/2025 5:38 PM [facility] Globulin 2.9 1.9 - 4.1 g/dL 03/07/2025 5:38 PM [facility] Blood (Blood) Venipuncture / Unknown 03/07/2025 10:57 AM EST 03/07/2025 10:57 AM EST us Hazel Rosenthal MD LAB BLOOD BKR ORDERABLES F inal Result [facility] [address] [place] [address] * (ABNORMAL) 25-OH Vitamin D (03/07/2025 10:57 AM EST) 25-OH Vitamin D, Total 15(L) 20 - 50 ng/mL 03/07/2025 9:47 PM [facility] Comment: Severe deficiency: <10 ng/mL Mild to moderate deficiency: 10-19 ng/mL Optimum levels: 20-50 ng/mL Increased risk of hypercalciuria: 51-80 ng/mL Possible toxicity: >80 ng/mL Blood (Blood) Venipuncture / Unknown 03/07/2025 10:57 AM EST 03/07/2025 10:57 AM EST us Hazel Rosenthal MD LAB BLOOD BKR ORDERABLES F inal Result [address] [address] * (ABNORMAL) CBC (03/07/2025 10:57 AM EST) WBC 11.58(H) 4.00 - 11.00 K/uL 03/07/2025 3:30 PM [facility] RBC 5.30(H) 4.00 - 5.20 M/uL 03/07/2025 3:30 PM [facility] Hemoglobin 13.1 12.0 - 16.0 g/dL 03/07/2025 3:30 PM [facility] Hematocrit 41.2 36.0 - 46.0 % 03/07/2025 3:30 PM [facility] MCV 77.7(L) 80.0 - 100.0 fL 03/07/2025 3:30 PM [facility] MCH 24.7(L) 27.0 - 31.0 pg 03/07/2025 3:30 PM [facility] MCHC 31.8(L) 32.0 - 36.0 g/dL 03/07/2025 3:30 PM [facility] PLT 417 150 - 450 K/uL 03/07/2025 3:30 PM [facility] MPV 9.5 8.4 - 12.0 fL 03/07/2025 3:30 PM [facility] RDW-CV 15.9(H) 11.5 - 14.5 % 03/07/2025 3:30 PM [facility] Absolute NRBC 0.00 <=0.00 K cells/uL 03/07/2025 3:30 PM [facility] NRBC 0.0 <=0.0 /100 WBCs 03/07/2025 3:30 PM EST [facility] Blood (Blood) Venipuncture / Unknown 03/07/2025 10:57 AM EST 03/07/2025 10:57 AM EST us Hazel Rosenthal MD LAB BLOOD BKR ORDERABLES F inal Result Performing Organization Address City/[facility]/ZIP Co de Phone Number [address] [address] * (ABNORMAL) Ferritin (03/07/2025 10:57 AM EST) Pathologist [facility] Ferritin 27(L) 30 - 150 ug/L 03/07/2025 5:38 PM [facility] Comment:The lower limit of t he reference range has been increased to 30 ug/L for all adults to reflect a physiologically sufficient level. See Document Link for additional information. Blood (Blood) Venipuncture / Unknown 03/07/2025 10:57 AM EST 03/07/2025 10:57 AM EST us Hazel Rosenthal MD LAB BLOOD BKR ORDERABLES F inal Result Performing Organization Address [facility] Co de Phone Number [address] [address] * Vitamin B12 (03/07/2025 10:57 AM EST) Pathologist [facility] Vitamin B12 375 232 - 1,245 pg/mL 03/07/2025 6:54 PM [facility] Blood (Blood) Venipuncture / Unknown 03/07/2025 10:57 AM EST 03/07/2025 10:57 AM EST us Hazel Rosenthal MD LAB BLOOD BKR ORDERABLES F inal Result Performing Organization Address City/[facility]/ZIP Co de Phone Number [address] [address] * Mammogram Diagnostic (Bilateral) (01/11/2024 2:24 PM EDT) Anatomical Region Laterality Modality Breast Left, Breast Right, Breast Bilateral Bila teral Breast Diagnostic us Hazel Rosenthal MD IMG MG EXAMS Final Resu lt * Hepatitis C antibody, qualitative (12/27/2023 11:36 AM EDT) HCV NON-REACTIV E NON-REACTI VE [facility] Blood 12/27/2023 11:3 6 AM EDT 12/27/2023 11:55 AM EDT us Hazel Rosenthal MD LAB BLOOD BKR ORDERABLES F inal Result [address] [address] * (ABNORMAL) Lipid panel (12/27/2023 11:36 AM EDT) HDL 46 mg/dL [facility] Comment: Interpretation <40 mg/dL: Low HDL cholesterol (major risk factor for CHD) Greater than or equal to 60 mg/dL: High HDL cholesterol ( negative risk factor for CHD) HDL - cholesterol is affected by a number of factors, e.g. smoking, excerise, hormones, sex and age. CHOLESTEROL 207 0 - 240 mg/dL [facility] TRIGLYCERIDES 172(H) 30 - 160 mg/dL [facility] LDL 127 50 - 129 mg/dL [facility] Comment: LDL levels in terms of risk for coronary heart disease: <100 mg/dL: Optimal 100-129 mg/dL: Near or above optimal 130-159 mg/dL: Borderline high 160-189 mg/dL: High >190 mg/dL: Very High CARDIAC RISK RATIO 4.5(H) 3.3 - 4.4 C [facility] Blood 12/27/2023 11:3 6 AM EDT 12/27/2023 11:55 AM EDT us Hazel Rosenthal MD LAB BLOOD BKR ORDERABLES F inal Result [address] [address] * Pap Smear (02/23/2022 12:00 AM EDT) 02/23/2022 02/24/2022 11: 12 AM EDT Narrative SEE NARRATIVE - 03/03/2022 11:21 AM EST [address] [address] [place] Drier Operator: Amisha Yanez MD LEGUILLON DEBEADER Cytology Report FINAL DIAGNOSIS A. PAP SMEAR [...] 52, 56, 58, 59, 66, 68) by Barbara [employer] On[employer] HR-HPV analysis. Clinical correlation is advised. This HPV test was performed at [facility], [address] [place] [address]. This test has been FDA approved for SurePath cervical cytology specimens. The accuracy and precision of this test for all other specimen sources has been verified in the Cytopathology Laboratory of the [facility] and has not been cleared or approved by the U.S. Food and Drug Administration. Clinical correlation is advised. CLINICAL HISTORY Date of Last Menstrual Period: 02-08-22 Other Clinical Conditions: Screening Pap SPECIMEN SOURCE A: PAP SMEAR (SUREPATH) CE Patient Name: JOJO WARE : 1980 (Age: 41) Sex: F Institution: [facility] Location: [facility] Date of Collection: 02/23/2022 Date of Reported: 03/03/2022 11:21 Results to: Alyssa Su MSN, BSN us Alyssa Su ATHLETICS TEACHER CYTOLOGY ORDERABLES Final Resul t SEE NARRATIVE from Last 3 Months or Most Recently Relevant to Health Maintenance Insurance [facility] ACO ACO [facility] [place] [id number] Care Teams Long Line Teamster Relationship Specialty Start Date End Date Hazel Rosenthal MD [address] [place] [address], [address] [place] [address] PCP - General Family Medicine 11/15/23 Hazel Rosenthal MD [address] [place] [address], [address] [place] [address] Insurance Assigned Provider 03/08/25 Additional Source Comments The information contained in this document represents components of the legal health record. It is not the complete legal health record.[facility]
--- OUTSIDE RECORDS SUMMARY | 2025-03-12 04:48 | XMS_ITS | Encounter Summary ---
Author Organization [facility] Address [address] [place] [address] Phone Care Team Providers Care Pulp Tester Name Role Phone Hazel Rosenthal MD Primary Care Provider [phone] Hazel Rosenthal MD Unavailable [phone] Encounter Details Date Type Department Care Team (Late st Contact Info) Description 03/08/2024 Procedure Pass [facility], Ct Scan - [facility] [address] [place] [address] Social History Tobacco Use Types Packs/Day Years [...] high school, GED, job training, learning the [place] language, technical skills, or developing parenting skills)? [...] enough money to get more. Never True 02/16/202 4 Residential Stability Answer Date Recor ded What is your housing situation today? I have gil torres 06/09/2023 How many times have you move [...] 11:07 AM EST Rupa Page RN * [place] Suicide Severity Rating Scale (Screener/Recent Self-Report) Question [...] Description 06/18/2025 1:00 PM EST Office Visit [facility] [address] [place] [address] Hazel Rosenthal MD [address] [place] [address], [address] [place] [address] [email or web address] documented as of this encounter Visit Diagnoses Not on filedocumented in this encounter Additional Health Concerns Assessment Noted Time PHQ-2 Depression Total Score: 0 11/15/19 24 12:30 AM EDT documented as of this encounter Care Teams Pulp Tester Relationship Specialty Start Date End Date Hazel Rosenthal MD [address] [place] [address], [address] [place] [address] PCP - General Family Medicine 7/24/24 Hazel Rosenthal MD [address] [place] [address], [address] [place] [address] [email or web address] Insurance Assigned Provider 03/08/25 documented as of this encounter Additional Source Comments The information contained in this document represents components of the legal health record. It is not the complete legal health record.[facility]
--- OUTSIDE RECORDS SUMMARY | 2025-03-12 04:48 | XMS_ITS | Encounter Summary ---
Author Organization [facility] Address [address] [facility] [address] [place] [address] Phone Care Team Providers Care Police Captain Senior Name Role Phone Alyssa Su AIRCRAFT STRUCTURE MECHANIC Primary Care Provider [phone] Unknown, Unknown Primary Care Provider Hazel Mccollum MD Primary Care Provider [phone] Hazel Rosenthal MD Unavailable [phone] Encounter Details Date Type Department Care Team (Late st Contact Info) Description 05/12/2022 Procedure Pass [facility] Endoscopy Admitting Dept Virtual Department [address] [place] [address] Social History Tobacco Use Types Packs/Day Years [...] high school, GED, job training, learning the Czech language, technical skills, or developing parenting skills)? [...] housing situation today? I have gil torres 02/23/2022 How many times have you move [...] Description 06/18/2025 1:00 PM EST Office Visit [facility] [address] [place] [address] Hazel Rosenthal MD [address] [place] [address], [address] [place] [address] documented as of this encounter Visit Diagnoses Not on filedocumented in this encounter Additional Health Concerns Assessment Noted Time PHQ-2 Depression Total Score: 0 02/24/20 3:06 PM EDT documented as of this encounter Care Teams Police Captain Senior Relationship Specialty Start Date End Date Alyssa Su NP PCP - General Family Medicine 06/18/20 07/02/23 Unknown, Unknown, PCP - General 07/03/23 11/14/23 Hazel Rosenthal MD [address] [place] [address], [address] [place] [address] [email or web address] PCP - General Family Medicine 11/15/23 Hazel Rosenthal MD [address] [place] [address], [address] [place] [address] [email or web address] Insurance Assigned Provider 03/08/25 documented as of this encounter Additional Source Comments The information contained in this document represents components of the legal health record. It is not the complete legal health record.[facility]
--- OUTSIDE RECORDS SUMMARY | 2025-03-12 04:48 | XMS_ITS | Encounter Summary ---
Author Organization [facility] Address [address] [employer] [facility] [address] [place] [address] Phone Care Team Providers Care Supervisor Cytogenetic Laboratory Name Role Phone Hazel Rosenthal MD Primary Care Provider [phone] Hazel Rosenthal MD Unavailable [phone] Reason for Visit * Reason Onset Date Comments Results 03/07/2025 Encounter Details Date Type Department Care Team (Late st Contact Info) Description 03/07/2025 Telephone [facility] [address] [place] [address] Kimmie Agee, RN [address] [place] [address] [email or web address] Results Social History Tobacco Use Types Packs/Day Years [...] high school, GED, job training, learning the Romansh language, technical skills, or developing parenting skills)? [...] as of this encounter Progress Notes * Rodolfo Lara MD - 03/07/2025 5:19 PM EST Can wait for pcp * Kimmie Agee RN - 03/07/2025 3:55 PM EST DOD: please view CBC results; specifically WBC. Any concerns or can wait until Monday afternoon forPCP review. documented in this encounter Plan of Treatment Upcoming Encounters Date Type Department Care Team (Late st Contact Info) Description 06/18/2025 1:00 PM EST Office Visit [facility] [address] [place] [address] [place] [address] Hazel Rosenthal MD [address] [place] [address], [address] [place] [address] [email or web address] documented as of this encounter Visit Diagnoses Not on filedocumented in this encounter Additional Health Concerns Assessment Noted Time PHQ-2 Depression Total Score: 0 06/16/19 25 4:08 PM EST documented as of this encounter Care Teams Supervisor Cytogenetic Laboratory Relationship Specialty Start Date End Date Hazel Rosenthal MD [address] [place] [address], [address] [place] [address] PCP - General Family Medicine 11/15/23 Hazel Rosenthal MD [address] [place] [address], [address] [place] [address] [email or web address] Insurance Assigned Provider 03/08/25 documented as of this encounter Additional Source Comments The information contained in this document represents components of the legal health record. It is not the complete legal health record.[facility]
== END 2025-03-11 13:07 | disposition home or self-care (01) ==
LOC: HO.MAMMO 13:06
PROVIDERS: PCP Family Medicine; Visit Provider Family Medicine
DX: R92.8 Other abnormal and inconclusive findings on diagnostic imaging of breast (principal)
CPT/HCPCS: 77062; 77066

== ENCOUNTER → 2025-03-11 13:30 | Outpatient (BNV) | payer MEDICAID, SELFPAY | PROVIDERS: PCP Family Medicine; Visit Provider Radiology Body Imaging | DX: R92.8 Other abnormal and inconclusive findings on diagnostic imaging of breast (principal) | CPT/HCPCS: 77062; 77066 ==